=== PATIENT | male | born 2005 | race African-American/Black ===

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

== ENCOUNTER 2024-08-28 07:06 | Emergency (ER) | payer OTHER ==
[~2024-08-28] VITALS: Ht 177.8 cm; Wt 69.9 kg
[~2024-08-28 07:06] MED LIST changes: +CLIN1CAP70 PO; -CLIN300C70 PO; +EMOL1CRE EX; +HYD25TP TOP
[2024-08-28 08:37] LABS: Basophils # (auto) 0 10 ^3/uL (0-0.2); Basophils % (auto) 0.9 % (0.0-2.0); Eosinophils # (auto) 0.1 10 ^3/uL (0-0.8); Hematocrit 48.1 % (41.0-53.0); Hemoglobin 16.1 g/dL (13.5-17.5); Lymphocytes # (auto) 1.3 10 ^3/uL (0.4-5.4); Lymphocytes % (auto) 40.6 % (10.0-50.0); Mean Corpuscular Hemoglobin 32.9 pg (28.0-32.0); Mean Corpuscular Hgb Conc. 33.5 g/dL (32.0-36.0); Mean Corpuscular Volume 98.1 fL (80.0-100.0); Monocytes # (auto) 0.3 10 ^3/uL (0-1.3); Monocytes % (auto) 9.6 % (0.0-12.0); Neutrophils # (auto) 1.4 10 ^3/uL (1.6-8.6); Neutrophils % (auto) 45.9 % (37.0-80.0); Nucleated Red Blood Cells % 0.3 %; Platelet Count (auto) 187 10^3/uL (140-450); Red Blood Cells 4.91 10^6/uL (4.5-5.90); Red Cell Distribution Width 15.3 % (11.8-14.3); White Blood Cell 3.1 10^3/uL (4.4-10.8)
[2024-08-28 08:56] LABS: Alanine Aminotransferase 14 U/L (7-40); Albumin 4.9 g/dL (3.2-4.8); Alkaline Phosphatase 82 U/L (46-116); Anion Gap 3 (5-15); Aspartate Aminotransferase 24 U/L (13-40); BUN/Creatinine Ratio 5.8 (10.0-20.0); Blood Urea Nitrogen 6 mg/dL (9-23); Calcium 10.1 mg/dL (8.7-10.4); Carbon Dioxide 30 mmol/L (20-31); Chloride 108 mmol/L (98-107); Glucose 74 mg/dL (74-106); Lipase 33 U/L (12-53); Sodium 141 mmol/L (136-145)
--- NOTE | 2024-08-28 08:56 | ED.PDOC ---
GI ASSESSMENT HPI Comments 18 year old male presents to the ED with chief complaint of abdominal pain. Patient reports that he has been experiencing suprapubic/RLQ abdominal pain for the past 2 days with associated symptoms of watery diarrhea, sweats, and a headache. Patient relays that his pain is currently an 8/10. Patient admits to heavy daily ETOH use as well as frequent recreational use of Xanax and Percocet. Patient denies any sick contacts, N/V, dizziness, fever, chills, or melena. Chief Complaint: Abdominal Pain Time Seen by MD: 08:20 Primary Care Provider: NONE Reviewed Notes: Nurses Notes, Medications, Allergies Allergies: Coded Allergies: NO KNOWN ALLERGIES (Unverified , 08/10/22) Home Meds Active Scripts Ondansetron Odt 4MG Tab (ZOFRAN PO) 4 Mg Tb, 4 MG PO Q6HR for 5 Days, #12 TAB ODT TAB-DISSOLVE IN MOUTH, THEN SWALLOW Prov:GRAYSON IQBAL MD 08/28/24 Hyoscyamine Sulfate (Levsin/Sl) 0.125 Mg Sub, 1-2 TAB SL Q4HPRN, #20 TAB 1 Refill Prov:GRAYSON IQBAL MD 08/28/24 Emollient (Eucerin Advanced Repair) 1 Cre Cre, 1 CRE EX BID for 90 Days, #1 BOT 0 Refills Prov:BYRON LOW NP 09/04/23 Hydrocortone (Hydrocortisone 2.5%) 1 Applic Ap, 1 APPLIC TOP BID for 5 Days, #25 GRAMS 0 Refills Prov:BYRON LOW NP 09/04/23 Benzocaine-Menthol (Mouth-Thro (Cepacol Sore Throat) 1 Elizabeth Elizabeth, 1 ELIZABETH MT Q4HR, #24 ELIZABETH as needed for sorethroat Prov:JANNIE HINOJOSA NP 08/26/23 Prednisone (Prednisone) 20 Mg Tab, 1 TAB PO DAILY for 5 Days, #5 TAB start tomorrow with food Prov:JANNIE HINOJOSA DEGREE CLERK 08/26/23 Clindamycin Hcl (Clindamycin Hcl) 300 Mg Cap, 1 CAP PO TID for 10 Days, #30 CAP Prov:JANNIE HINOJOSA DEGREE CLERK 08/26/23 Albuterol Sulfate (VENTOLIN MDI) 90 Mcg Ih, 1 PUFF IN Q4H, #1 INH as needed for cough congestion SOb and wheezing Prov:JANNIE HINOJOSA DEGREE CLERK 06/26/23 Prednisone (Prednisone) 20 Mg Tab, 1 TAB PO DAILY, #5 MG with food Prov:JANNIE HINOJOSA DEGREE CLERK 06/26/23 Azithromycin (Zithromax Z-[place]) 250 Mg Tab, 1 TAB PO DAILY for 5 Days, #6 TAB 2 tabs today then 1 tab start tomorrow for 4 days Prov:JANNIE HINOJOSA Marleny DEGREE CLERK 06/26/23 Amoxicillin Trihydrate (Amoxicillin) 500 Mg Tab, 500 MG PO 3 TIMES DAILY for 7 Days, #21 TAB Prov:HEATHER JENKINS MD 08/10/22 Sumatriptan Succinate (Sumatriptan Succinate) 100 Mg Tab, 25 MG PO 3 TIMES DAILY for 7 Days, #21 TAB Prov:HEATHER JENKINS MD 08/10/22 Information Source: Patient Mode of Arrival: Ambulatory Timing: Days Duration: Since onset Prehospital treatment: None Quality: Sharp Vomitus: None Stool: Watery Severity: Moderate Recent: Ingestion of ETOH Recent Hx of: Narcotic Use Pain Location: RLQ, Suprapubic Modifying Factors: Nothing Associated sign and symptoms: Diarrhea, Abdominal Pain Past Medical History PAST MEDICAL HISTORY: Denies Surgical History: Denies all surgeries Family History Family History: Reviewed,noncontributory to illness Social History Smoker: Non-Smoker Alcohol: Heavy Drugs: Marijuana, Other (Recreational use of Xanax and Percocet) Lives In: Home Constitutional: reports: sweats; denies: chills, diaphoresis, fatigue, fever, malaise, weakness, others EENTM: denies: blurred vision, double vision, ear bleeding, ear discharge, ear drainage, ear pain, ear ringing, eye pain, eye redness, hearing loss, mouth pain, mouth swelling, nasal discharge, nose bleeding, nose congestion, nose pain, photophobia, tearing, throat pain, throat swelling, voice changes, others Respiratory: denies: cough, hemoptysis, orthopnea, SOB at rest, shortness of breath, SOB with excertion, stridor, wheezing, others Cardiovascular: denies: chest pain, dizzy spells, diaphoresis, Dyspnea on exertion, edema, irregular heart beat, left arm pain, lightheadedness, palpitations, PND, syncope, others Gastrointestinal: reports: abdominal pain, diarrhea; denies: abdomen distended, blood streaked bowels, constipated, dysphagia, difficulty swallowing, hematemesis, melena, nausea, poor appetite, poor fluid intake, rectal bleeding, rectal pain, vomiting, others Genitourinary: denies: burning, dysuria, flank pain, frequency, hematuria, incontinence, penile discharge, penile sore, pain, testicle pain, testicle swelling, urgency, others Neurological: reports: headache; denies: dizziness, fainting, left sided numbness, left sided weakness, numbness, paresthesia, pre-existing deficit, right sided numbness, right sided weakness, seizure, speech problems, tingling, tremors, weakness, others Musculoskeletal: denies: back pain, gout, joint pain, joint swelling, muscle pain, muscle stiffness, neck pain, others Integumetry: denies: bruises, change in color, change in hair/nails, dryness, laceration, lesions, lumps, rash, wounds, others Allergic/Immunocompromised: denies: Difficulty Healing, Frequent Infections, Hives, Itching, others Hematologic/Lymphatic: denies: anemia, blood clots, easy bleeding, easy bruising, swollen glands, others Endocrine: denies: excessive hunger, excessive sweating, excessive thirst, excessive urination, flushing, intolerance to cold, intolerance to heat, unexplained weight gain, unexplained weight loss, others Psychiatric: denies: anxiety, bipolar disorder, depression, hopeless, panic disorder, schizophrenia, sleepless, suicidal, others All Other Systems: Reviewed and Negative Physical Exam General Appearance: No Apparent Distress, Normal HEENT: Normal ENT Inspection, PERRL/EOMI Neck: Full Range of Motion, Non-Tender, Normal, Normal Inspection Respiratory: Chest Non-Tender, Lungs Clear, No Accessory Muscle Use, No Respiratory Distress, Normal Breath Sounds Cardiovascular: No Edema, No JVD, No Murmur, No Gallop, Normal Peripheral Pulses, Regular Rate/Rhythm Breast Exam: Deferred Gastrointestinal: No Organomegaly, No Pulsatile Mass, Normal Bowel Sounds, Soft, Tenderness (Suprapubic and RLQ tenderness) Genitalia: Deferred Pelvic: Deferred Rectal: Deferred Extremities: No calf tenderness, Normal capillary refill, Normal inspection, Normal range of motion, Non-tender, No pedal edema Musculoskeletal : Apperance: Normal Neurologic: Alert, skirt panel assembler II-XII nml as Tested, No Motor Deficits, Normal Affect, Normal Mood, No Sensory Deficits Cerebellar Function: Normal Reflexes: Normal Skin: Dry, Normal Color, Warm Lymphatic: No Adenopathy Was a procedure done? Was a procedure done?: No GI differential Dx Differential Diagnosis: Appendicitis Other Differential Diagnosis Appendicitis, cholecystitis, small-bowel obstruction, nephrolithiasis, UTI X-Ray, Labs, Meds, VS Vital Signs Date Time Temp Pulse Resp B/P (MAP) Pulse Ox O2 Delivery O2 Flow Rate FiO2 08/28/24 10:20 98.3 62 16 117/60 (79) 98 98.3 08/28/24 09:46 60 16 115/63 08/28/24 09:07 61 16 106/65 08/28/24 08:26 61 16 99 Room Air 08/28/24 08:26 97.5 61 16 106/65 (79) 99 97.5 08/28/24 07:53 98.7 71 20 111/70 (84) 99 Lab Test 08/28/24 08:25 08/28/24 08:03 Range/Units Urine Color Light-yellow Yellow Urine Clarity Clear Clear Urine pH 8.0 5.0-9.0 Urine Specific [place] 1.020 1.001-1.035 Urine Protein Trace H Negative Urine Ketones Negative Negative Urine Blood Negative Negative /uL Urine Nitrite Negative Negative Urine Bilirubin Negative Negative Urine Urobilinogen 2 H Negative mg/dL Urine Leukocyte Esterase Negative Negative /uL Urine RBC 3 0 - 3 /hpf Urine WBC None seen 0 - 3 /hpf Urine Squamous Epithelial Cells None seen <5 /hpf Urine Bacteria None seen None Seen /hpf Urine Glucose Normal Normal mg/dL White Blood Count 3.1 L 4.4-10.8 10^3/uL Red Blood Count 4.91 4.5-5.90 10^6/uL Hemoglobin 16.1 13.5-17.5 g/dL Hematocrit 48.1 41.0-53.0 % Mean Corpuscular Volume 98.1 80.0-100.0 fL Mean Corpuscular Hemoglobin 32.9 H 28.0-32.0 pg Mean Corpuscular Hemoglobin Concent 33.5 32.0-36.0 g/dL Red Cell Distribution Width 15.3 H 11.8-14.3 % Platelet Count 187 140-450 10^3/uL Mean Platelet Volume 8.7 6.9-10.8 fL Neutrophils (%) (Auto) 45.9 37.0-80.0 % Lymphocytes (%) (Auto) 40.6 10.0-50.0 % Monocytes (%) (Auto) 9.6 0.0-12.0 % Eosinophils (%) (Auto) 3.0 0.0-7.0 % Basophils (%) (Auto) 0.9 0.0-2.0 % Neutrophils # (Auto) 1.4 L 1.6-8.6 10 ^3/uL Lymphocytes # (Auto) 1.3 0.4-5.4 10 ^3/uL Monocytes # (Auto) 0.3 0-1.3 10 ^3/uL Eosinophils # (Auto) 0.1 0-0.8 10 ^3/uL Basophils # (Auto) 0 0-0.2 10 ^3/uL Nucleated Red Blood Cells 0.3 % Sodium Level 141 136-145 mmol/L Potassium Level 4.0 3.5-5.1 mmol/L Chloride Level 108 H 98-107 mmol/L Carbon Dioxide Level 30 20-31 mmol/L Anion Gap 3 L 5-15 Blood Urea Nitrogen 6 L 9-23 mg/dL Creatinine 1.04 0.700-1.30 mg/dL Glomerular Filtration Rate Calc 106 >90 mL/min BUN/Creatinine Ratio 5.8 L 10.0-20.0 Serum Glucose 74 74-106 mg/dL Calcium Level 10.1 8.7-10.4 mg/dL Total Bilirubin 0.6 0.2-1.0 mg/dL Aspartate Amino Transferase (AST) 24 13-40 U/L Alanine Aminotransferase (ALT) 14 7-40 U/L Alkaline Phosphatase 82 46-116 U/L Total Protein 7.8 5.7-8.2 g/dL Albumin 4.9 H 3.2-4.8 g/dL Lipase 33 12-53 U/L Current Medications Medications (Trade) Dose Ordered Sig/Giovanny Route Start Time Stop Time Status Last Admin Ondansetron HCl (Zofran) 4 mg ONCE ONCE IV 08/28/24 09:00 08/28/24 09:01 DC 08/28/24 09:07 Morphine Sulfate 4 mg ONCE ONCE IV 08/28/24 09:00 08/28/24 09:01 DC 08/28/24 09:07 CT Abd/Pel: FINDINGS: The CT study is degraded by motion artifact. Theliver, gallbladder, pancreas, kidneys, adrenal glands, and spleen appear within normal limits. There is no gross evidence of abdominal lymphadenopathy. There is no free fluid or free air. The stomach grossly appears unremarkable. The small and large bowel loops demonstrate normal caliber. The appendix is not readily seen in the right lower quadrant abdomen. However, there are no inflammatory changes seen in this region. Air intermixed with stool is seen throughout the colon. The abdominal aorta and IVC appear within normal limits. The bladder appears within normal limits the degree of distention. Pelvic organs is unremarkable. There is no gross evidence of a pelvic mass or lymphadenopathy. There is no free fluid collection. Lung bases are clear. There is no acute osseous abnormality. IMPRESSION: 1. Limited study secondary to motion artifact. 2. The appendix is not readily seen in the right lower quadrant abdomen. However, there are no inflammatory changes seen in this region. There is no evidence of bowel obstruction. 18-year-old male presents here with abdominal pain. On my evaluation patient is tender to the right lower quadrant. Considered possible appendicitis. CT abdomen pelvis with IV contrast was performed which did not readily see the appendix. However there were no inflammatory changes in the region. No other abnormalities visualized. Blood work has been done which no leukocytosis and otherwise unremarkable. I have given him morphine and Zofran here in the ER. Clinically he is feeling better. On my re-evaluation of the patient at 11:00 a.m., abdomen is soft and nontender. Patient has been having diarrhea it is likely this pain is from diarrhea or cramps. I have given a prescription for both Zofran and hyoscyamine sent to the pharmacy of choice. Advised him to return back to the ER in 12 hours for re-evaluation of this abdominal pain. Patient agreeable. Time of 1ST Reevaluation: 09:20 Reevaluation 1ST: Unchanged Time of 2ND Reevaluation: 10:47 Reevaluation 2ND: Improved Patient Education/Counseling: Diagnosis, Treatment Family Education/Counseling: No Family Present Departure 1 Departure Time of Disposition: 10:47 Impression: Primary Impression: Abdominal pain Qualified Codes: R10.31 - Right lower quadrant pain Additional Impression: Diarrhea Qualified Codes: R19.7 - Diarrhea, unspecified Disposition: 01 HOME / SELF CARE / HOMELESS Condition: Stable Additional Instructions: Return back to the ER in 12 hours for re-evaluation. Return sooner if symptoms worsen or persist. e-Prescriptions Ondansetron Odt 4MG Tab (ZOFRAN PO) 4 Mg Tb 4 MG PO Q6HR for 5 Days, #12 TAB ODT TAB-DISSOLVE IN MOUTH, THEN SWALLOW Prov: GRAYSON IQBAL MD 08/28/24 Hyoscyamine Sulfate (Levsin/Sl) 0.125 Mg Sub 1-2 TAB SL Q4HPRN, #20 TAB 1 Refill Prov: GRAYSON IQBAL MD 08/28/24 Discharged With: Self Critical Care Note Critical Care Time?: No Stability Stability form required: No Heart Score Heart Score: Heart Score Response (Comments) Value History N/A 0 EKG N/A 0 Age N/A 0 Risk Factors N/A 0 Troponin N/A 0 Total 0 I personally scribed for GRAYSON IQBAL MD ([email or web address]) on 08/28/24 at 08:56. Electronically submitted by Josh Braga ([email or web address]). I personally scribed for GRAYSON IQBAL MD ([email or web address]) on 08/28/24 at 10:48. Electronically submitted by Josh Braga ([email or web address]). GRAYSON IQBAL MD Aug 28, 2024 08:56
[2024-08-28 08:57] LABS: Bilirubin, Total 0.6 mg/dL (0.2-1.0); Total Protein 7.8 g/dL (5.7-8.2)
[2024-08-28 09:03] LABS: Urine Bacteria None Seen /hpf (None Seen); Urine WBC None Seen /hpf (0 - 3)
[2024-08-28] MEDS: ONDANSETRON HCL 4 MG/2 ML VIAL IV ONE (09:07)
[2024-08-28] MEDS: MORPHINE SULFATE 4 MG/ML SYR/VIAL IV ONE (09:07)
[2024-08-28 09:20] LABS: Urine Blood Negative /uL (Negative); Urine Clarity Clear (Clear); Urine Color Light-Yellow (Yellow); Urine Protein, UAD TRACE (Negative); Urine Urobilinogen 2 mg/dL (Negative)
[2024-08-28] MEDS: IOHEXOL 300 MG/ML 100ML BOTTLE IJ ONE (09:31)
--- NOTE | 2024-08-28 09:40 | DVH ---
Exam: CT CT AB PEL WITH IV CON ONLY History: ro appy Comparison Study: TECHNIQUE: A digital mobile equipment servicer image was obtained. During the uneventful, intravenous administration of c ontrast material, multislice data acquisition was obtained through the abdomen and pelvis. The data s et was subsequently reconstructed into axial images. Images were reviewed on a work station using a c ombination of axial and multiplanar using a variety of window levels and settings. 100 cc of Omnipaqu e 300 contrast was injected intravenously. All CT scans at this medical facility are performed using dose modulation techniques as appropriate t o a performed exam including the following:Automated exposure control was utilized; adjustment of the MA and/or KV according to patient size; and use of iterative reconstruction technique. Radiation Dose Information: CT Dose: CTDI volume is 7.3 mGy. Dose-length product is 386 mGy*cm Comparison: None FINDINGS: The CT study is degraded by motion artifact. Theliver, gallbladder, pancreas, kidneys, adrenal glands, and spleen appear within normal limits. There is no gross evidence of abdominal lymphadenopathy. There is no free fluid or free air. The stomach grossly appears unremarkable. The small and large bowel loops demonstrate normal caliber. The appendix is not readily seen in the right lower quadrant abdomen. However, there are no inflamm atory changes seen in this region. Air intermixed with stool is seen throughout the colon. The abdominal aorta and IVC appear within normal limits. The bladder appears within normal limits the degree of distention. Pelvic organs is unremarkable. The re is no gross evidence of a pelvic mass or lymphadenopathy. There is no free fluid collection. Lung bases are clear. There is no acute osseous abnormality. IMPRESSION: 1. Limited study secondary to motion artifact. 2. The appendix is not readily seen in the right lower quadrant abdomen. However, there are no infla mmatory changes seen in this region. There is no evidence of bowel obstruction. HS:Y
[2024-08-28 10:20] VITALS: BP 117/60; PULSE 62; RESP 16; TEMP 98.3; O2SAT 98
[2024-08-28] MEDS ORDERED: ZOFR4T PO (11:22)
[2024-08-28] MEDS ORDERED: HYOS0.1251 SL (11:22)
== END 2024-08-28 11:02 | disposition home or self-care (01) ==
LOC: ER 07:06
DX: R10.31 Right lower quadrant pain (principal); R19.7 Diarrhea, unspecified; F10.90 Alcohol use, unspecified, uncomplicated; F15.90 Other stimulant use, unspecified, uncomplicated; Z79.899 Other long term (current) drug therapy; Y90.0 Blood alcohol level of less than 20 mg/100 ml
CPT/HCPCS: 36415; 74177; 80053; 81001; 83690; 85025; 96374; 96375; 99285; J2270; J2405; Q9967

== ENCOUNTER 2024-09-04 08:20 | Emergency (ER) | payer OTHER ==
[~2024-09-04] VITALS: Ht 177.8 cm; Wt 71.9 kg
[~2024-09-04 08:20] MED LIST changes: +HYOS0.1251 SL; +ZOFR4T PO
[2024-09-04 08:30] VITALS: BP 112/61; TEMP 98.4
--- NOTE | 2024-09-04 08:58 | ED.PDOC ---
GI ASSESSMENT HPI Comments A 18 YEAR OLD MALE PRESENTS TO THE ED WITH COMPLAINT OF RUQ ABDOMINAL PAIN WITH N/V/D. PATIENT STATES HAS BEEN EXPERIENCING RIGHT UPPER QUADRANT ABDOMINAL PAIN WITH OCCASIONAL NAUSEA, VOMITING, AND DIARRHEA OFF AND ON FOR THE PAST 1 WEEK. PATIENT REPORTS HE CAME TO THIS ED 1 WEEK AGO FOR THE SAME COMPLAINT WHERE A CT SCAN OF HIS ABDOMEN AND PELVIS WITH IV CONTRAST AND LABS WERE DONE ALL OF WHICH WERE NORMAL, BUT NOTES HE IS STILL EXPERIENCING PAIN. PATIENT NOTES THAT HE DRINKS ALCOHOL ON A DAILY BASIS. PATIENT DENIES FEVER, CHILLS, SHORTNESS OF BREATH, CHEST PAIN, HEADACHE, OR OTHER COMPLAINTS. NO OTHER SYMPTOMS OR MODIFYING FACTORS AT THIS TIME. PATIENT IS ALERT, ORIENTED X 4, AND HAS STEADY GAIT. Chief Complaint: Abdominal Pain Time Seen by MD: 08:26 Primary Care Provider: NONE Reviewed Notes: Nurses Notes, Medications, Allergies Allergies: Coded Allergies: NO KNOWN ALLERGIES (Unverified , 08/10/22) Home Meds Active Scripts Pantoprazole Sodium Sesquihydr (Protonix) 40 Mg Tab, 40 MG PO DAILY, #20 TAB Prov:DANISH NAVARRO 09/04/24 Ondansetron Odt 4MG Tab (ZOFRAN PO) 4 Mg Tb, 4 MG PO Q6HR for 5 Days, #12 TAB ODT TAB-DISSOLVE IN MOUTH, THEN SWALLOW Prov:GRAYSON IQBAL MD 08/28/24 Hyoscyamine Sulfate (Levsin/Sl) 0.125 Mg Sub, 1-2 TAB SL Q4HPRN, #20 TAB 1 Refill Prov:GRAYSON IQBAL MD 08/28/24 Emollient (Eucerin Advanced Repair) 1 Cre Cre, 1 CRE EX BID for 90 Days, #1 BOT 0 Refills Prov:BYRON LOW NP 09/04/23 Hydrocortone (Hydrocortisone 2.5%) 1 Applic Ap, 1 APPLIC TOP BID for 5 Days, #25 GRAMS 0 Refills Prov:BYRON LOW NP 09/04/23 Benzocaine-Menthol (Mouth-Thro (Cepacol Sore Throat) 1 Elizabeth Elizabeth, 1 ELIZABETH MT Q4HR, #24 ELIZABETH as needed for sorethroat Prov:JANNIE HINOJOSA LOAN SECRETARY 08/26/23 Prednisone (Prednisone) 20 Mg Tab, 1 TAB PO DAILY for 5 Days, #5 TAB start tomorrow with food Prov:JANNIE HINOJOSA LOAN SECRETARY 08/26/23 Clindamycin Hcl (Clindamycin Hcl) 300 Mg Cap, 1 CAP PO TID for 10 Days, #30 CAP Prov:JANNIE HINOJOSA LOAN SECRETARY 08/26/23 Albuterol Sulfate (VENTOLIN MDI) 90 Mcg Ih, 1 PUFF IN Q4H, #1 INH as needed for cough congestion SOb and wheezing Prov:JANNIE HINOJOSA LOAN SECRETARY 06/26/23 Prednisone (Prednisone) 20 Mg Tab, 1 TAB PO DAILY, #5 MG with food Prov:JANNIE HINOJOSA LOAN SECRETARY 06/26/23 Azithromycin (Zithromax Z-[place]) 250 Mg Tab, 1 TAB PO DAILY for 5 Days, #6 TAB 2 tabs today then 1 tab start tomorrow for 4 days Prov:JANNIE HINOJOSA LOAN SECRETARY 06/26/23 Amoxicillin Trihydrate (Amoxicillin) 500 Mg Tab, 500 MG PO 3 TIMES DAILY for 7 Days, #21 TAB Prov:HEATHER JENKINS MD 08/10/22 Sumatriptan Succinate (Sumatriptan Succinate) 100 Mg Tab, 25 MG PO 3 TIMES DAILY for 7 Days, #21 TAB Prov:HEATHER JENKINS MD 08/10/22 Information Source: Patient Mode of Arrival: Ambulatory Timing: Days Duration: Intermittent, Days Prehospital treatment: None Quality: Aching, Cramping Vomitus: Food Particles Stool: Loose, Watery Severity: Moderate Recent: None Recent Hx of: None Pain Location: RUQ Modifying Factors: Nothing Associated sign and symptoms: Nausea, Vomiting, Diarrhea, Abdominal Pain Past Medical History PAST MEDICAL HISTORY: Denies Surgical History: Denies all surgeries Family History Family History: Reviewed,noncontributory to illness Social History Smoker: Non-Smoker Alcohol: Heavy Drugs: Marijuana, Other Lives In: Home Constitutional: denies: chills, diaphoresis, fatigue, fever, malaise, sweats, weakness, others EENTM: denies: blurred vision, double vision, ear bleeding, ear discharge, ear drainage, ear pain, ear ringing, eye pain, eye redness, hearing loss, mouth pain, mouth swelling, nasal discharge, nose bleeding, nose congestion, nose pain, photophobia, tearing, throat pain, throat swelling, voice changes, others Respiratory: denies: cough, hemoptysis, orthopnea, SOB at rest, shortness of b reath, SOB with excertion, stridor, wheezing, others Cardiovascular: denies: chest pain, dizzy spells, diaphoresis, Dyspnea on exertion, edema, irregular heart beat, left arm pain, lightheadedness, palpitations, PND, syncope, others Gastrointestinal: reports: abdominal pain (RIGHT UPPER QUADRANT ABDOMINAL PAIN), nausea, vomiting; denies: abdomen distended, blood streaked bowels, constipated, diarrhea, dysphagia, difficulty swallowing, hematemesis, melena, poor appetite, poor fluid intake, rectal bleeding, rectal pain, others Genitourinary: denies: burning, dysuria, flank pain, frequency, hematuria, incontinence, penile discharge, penile sore, pain, testicle pain, testicle swelling, urgency, others Neurological: denies: dizziness, fainting, headache, left sided numbness, left sided weakness, numbness, paresthesia, pre-existing deficit, right sided numbness, right sided weakness, seizure, speech problems, tingling, tremors, weakness, others Musculoskeletal: denies: back pain, gout, joint pain, joint swelling, muscle pain, muscle stiffness, neck pain, others Integumetry: denies: bruises, change in color, change in hair/nails, dryness, laceration, lesions, lumps, rash, wounds, others Allergic/Immunocompromised: denies: Difficulty Healing, Frequent Infections, Hives, Itching, others Hematologic/Lymphatic: denies: anemia, blood clots, easy bleeding, easy bruising, swollen glands, others Endocrine: denies: excessive hunger, excessive sweating, excessive thirst, excessive urination, flushing, intolerance to cold, intolerance to heat, unexplained weight gain, unexplained weight loss, others Psychiatric: denies: anxiety, bipolar disorder, depression, hopeless, panic disorder, schizophrenia, sleepless, suicidal, others All Other Systems: Reviewed and Negative Physical Exam General Appearance: No Apparent Distress, Normal HEENT: Normal ENT Inspection, PERRL/EOMI, Pharynx Normal, TMs Normal Neck: Full Range of Motion, Non-Tender, Normal, Normal Inspection Respiratory: Chest Non-Tender, Lungs Clear, No Accessory Muscle Use, No Respiratory Distress, Normal Breath Sounds Cardiovascular: No Edema, No JVD, No Murmur, No Gallop, Normal Peripheral Pulses, Regular Rate/Rhythm Breast Exam: Deferred Gastrointestinal: No Organomegaly, No Pulsatile Mass, Normal Bowel Sounds, RUQ, Soft, Tenderness (RIGHT UPPER ABD, NO GUARDING AND REBOUND TENDERNESS. ) Genitalia: Deferred Pelvic: Deferred Rectal: Deferred Extremities: No calf tenderness, Normal capillary refill, Normal inspection, Normal range of motion, Non-tender, No pedal edema Musculoskeletal : Apperance: Normal Neurologic: Alert, test engineering intern II-XII nml as Tested, No Motor Deficits, Normal Affect, Normal Mood, No Sensory Deficits Cerebellar Function: Normal Reflexes: Normal Skin: Dry, Normal Color, Warm Peripheral Pulses: 2+ carotid (R), 2+ carotid (L) Lymphatic: No Adenopathy Was a procedure done? Was a procedure done?: No GI differential Dx Differential Diagnosis: Cholecystitis, Diverticular disease, Gastritis/PUD, Gastroenteritis, Pancreatitis, Dehydration, Food Poisoning, Viral X-Ray, Labs, Meds, VS Vital Signs Date Time Temp Pulse Resp B/P (MAP) Pulse Ox O2 Delivery O2 Flow Rate FiO2 09/04/24 09:06 78 18 100 Room Air 09/04/24 08:30 98.4 78 18 112/61 (78) 100 98.4 09/04/24 08:30 98.4 78 18 112/61 (78) 100 Lab Test 09/04/24 09:22 09/04/24 08:55 Range/Units White Blood Count 3.3 L 4.4-10.8 10^3/uL Red Blood Count 4.52 4.5-5.90 10^6/uL Hemoglobin 15.3 13.5-17.5 g/dL Hematocrit 44.4 41.0-53.0 % Mean Corpuscular Volume 98.2 80.0-100.0 fL Mean Corpuscular Hemoglobin 33.8 H 28.0-32.0 pg Mean Corpuscular Hemoglobin Concent 34.4 32.0-36.0 g/dL Red Cell Distribution Width 14.8 H 11.8-14.3 % Platelet Count 193 140-450 10^3/uL Mean Platelet Volume 8.5 6.9-10.8 fL Neutrophils (%) (Auto) 36.8 L 37.0-80.0 % Lymphocytes (%) (Auto) 47.5 10.0-50.0 % Monocytes (%) (Auto) 10.1 0.0-12.0 % Eosinophils (%) (Auto) 4.5 0.0-7.0 % Basophils (%) (Auto) 1.1 0.0-2.0 % Neutrophils # (Auto) 1.2 L 1.6-8.6 10 ^3/uL Lymphocytes # (Auto) 1.6 0.4-5.4 10 ^3/uL Monocytes # (Auto) 0.3 0-1.3 10 ^3/uL Eosinophils # (Auto) 0.1 0-0.8 10 ^3/uL Basophils # (Auto) 0 0-0.2 10 ^3/uL Nucleated Red Blood Cells 0.1 % Sodium Level 143 136-145 mmol/L Potassium Level 4.0 3.5-5.1 mmol/L Chloride Level 106 98-107 mmol/L Carbon Dioxide Level 30 20-31 mmol/L Anion Gap 7 5-15 Blood Urea Nitrogen 12 9-23 mg/dL Creatinine 1.03 0.700-1.30 mg/dL Glomerular Filtration Rate Calc 107 >90 mL/min BUN/Creatinine Ratio 11.7 10.0-20.0 Serum Glucose 67 L 74-106 mg/dL Calcium Level 9.8 8.7-10.4 mg/dL Total Bilirubin 0.7 0.2-1.0 mg/dL Aspartate Amino Transferase (AST) 21 13-40 U/L Alanine Aminotransferase (ALT) 15 7-40 U/L Alkaline Phosphatase 58 46-116 U/L Total Protein 7.3 5.7-8.2 g/dL Albumin 4.3 3.2-4.8 g/dL Urine Color Light-yellow Yellow Urine Clarity Clear Clear Urine pH 6.0 5.0-9.0 Urine Specific [place] 1.019 1.001-1.035 Urine Protein Negative Negative Urine Ketones Negative Negative Urine Blood Negative Negative /uL Urine Nitrite Negative Negative Urine Bilirubin Negative Negative Urine Urobilinogen Normal Negative mg/dL Urine Leukocyte Esterase Negative Negative /uL Urine RBC 4 0 - 3 /hpf Urine WBC <1 0 - 3 /hpf Urine Squamous Epithelial Cells Few <5 /hpf Urine Bacteria None seen None Seen /hpf Urine Glucose Normal Normal mg/dL Urine Opiates Screen Neg NEGATIVE Urine Fentanyl Screen Neg NEGATIVE Urine Barbiturates Screen Neg NEGATIVE Urine Phencyclidine Screen Neg NEGATIVE Urine Amphetamines Screen Neg NEGATIVE Urine Benzodiazepines Screen Neg NEGATIVE Urine Cocaine Screen Neg NEGATIVE Urine Cannabinoids Screen Neg NEGATIVE Current Medications Medications (Trade) Dose Ordered Sig/Giovanny Route Start Time Stop Time Status Last Admin Acetaminophen/ Hydrocodone Bitart ([place] 5/325MG Tab) 1 tab ONCE ONCE PO 09/04/24 10:30 09/04/24 10:31 09/04/24 10:26 ULTRASOUND ABDOMEN LIMITED INDICATION: Abdominal pain.. TECHNIQUE: Multiple real-time sonographic images of the abdomen were obtained. COMPARISON: None FINDINGS: The visualized liver parenchyma appears mildly echogenic compatible with steatosis. . The liver measures 14.3 cm. No discrete hepatic lesion or intrahepatic biliary ductal dilatation is identified. There is no evidence of gallstones, gallbladder wall thickening or pericholecystic fluid. The common biliary duct is not dilated. The right kidney measures 8.8 cm length. No sonographic evidence of nephrolithiasis or hydronephrosis. Pancreas is obscured by bowel gas. IMPRESSION: 1. Mildly echogenic appearing liver parenchyma May relate to mild fatty infiltration. Clinical and laboratory correlation is recommended. HS:Y ATED BY: DERRICK CARTER MD DICTATED DATE/TIME: 09/04/24940 SIGNED BY: DERRICK CARTER MD SIGNED DATE/TIME: 09/04/24940 CC: X-Ray, Labs, Meds, VS Comment LABS ORDERED: CBC, CMP, UA, UDS REVIEWED AND INTERPRETED RESULTS: GLUC 67 TREATMENT: NORCO 5/325 MG P.O., PATIENT DECLINED IV TREATMENT, AND STATED HE DOES NOT LIKE NEEDLES. PATIENT WAS ONLY REQUESTING NORCO FOR PAIN MEDICINE. Images Reviewed?: Images reviewed and evaluated by me Time of 1ST Reevaluation: 10:30 Reevaluation 1ST: Improved Patient Education/Counseling: Diagnosis, Treatment, Need For Follow Up Family Education/Counseling: Diagnosis, Treatment, Need For Follow Up Medical Screening: No EMC Exist At This Time Departure 1 Departure Time of Disposition: 10:30 Impression: Primary Impression: Acute gastroenteritis Additional Impressions: Alcoholic gastritis Qualified Codes: K29.20 - Alcoholic gastritis without bleeding Hepatic steatosis Disposition: HOME / SELF CARE / HOMELESS Condition: Stable Additional Instructions: FOLLOW-UP WITH PCP IN 1 TO 2 DAYS. TAKE MEDICATIONS PRESCRIBED. RETURN TO ED FOR ANY NEW OR WORSENING SYMPTOMS. e-Prescriptions Pantoprazole Sodium Sesquihydr (Protonix) 40 Mg Tab 40 MG PO DAILY, #20 TAB Prov: DANISH NAVARRO 09/04/24 Discharged With: Self Critical Care Note Critical Care Time?: No Stability Stability form required: No I personally scribed for DANISH NAVARRO ([email or web address]) on 09/04/24 at 08:58. Electronically submitted by Calos Alberto ([email or web address]). I personally scribed for DANISH NAVARRO ([email or web address]) on 09/04/24 at 10:14. Electronically submitted by Calos Alberto ([email or web address]). I personally scribed for DANISH NAVARRO ([email or web address]) on 09/04/24 at 10:21. Electronically submitted by Calos Alberto ([email or web address]). DANISH NAVARRO Sep 04, 2024 08:58
[2024-09-04 09:06] VITALS: PULSE 78; RESP 18; O2SAT 100
[2024-09-04 09:21] LABS: Urine Bacteria None Seen /hpf (None Seen)
[2024-09-04 09:42] LABS: Urine Blood Negative /uL (Negative); Urine Clarity Clear (Clear); Urine Color Light-Yellow (Yellow); Urine Protein, UAD Negative (Negative); Urine Specific Gravity 1.019 (1.001-1.035); Urine Urobilinogen Normal (Negative); Urine WBC <1 /hpf (0 - 3)
--- NOTE | 2024-09-04 09:42 | DVH ---
ULTRASOUND ABDOMEN LIMITED INDICATION: Abdominal pain.. TECHNIQUE: Multiple real-time sonographic images of the abdomen were obtained. COMPARISON: None FINDINGS: The visualized liver parenchyma appears mildly echogenic compatible with steatosis. . The liver me asures 14.3 cm. No discrete hepatic lesion or intrahepatic biliary ductal dilatation is identifi ed. There is no evidence of gallstones, gallbladder wall thickening or pericholecystic fluid. The common biliary duct is not dilated. The right kidney measures 8.8 cm length. No sonographic evidence of nephrolithiasis or hydronephros is. Pancreas is obscured by bowel gas. IMPRESSION: 1. Mildly echogenic appearing liver parenchyma May relate to mild fatty infiltration. Clinical and la boratory correlation is recommended. HS:Y
[2024-09-04 09:43] LABS: Basophils # (auto) 0 10 ^3/uL (0-0.2); Basophils % (auto) 1.1 % (0.0-2.0); Eosinophils # (auto) 0.1 10 ^3/uL (0-0.8); Eosinophils % (auto) 4.5 % (0.0-7.0); Hematocrit 44.4 % (41.0-53.0); Hemoglobin 15.3 g/dL (13.5-17.5); Lymphocytes # (auto) 1.6 10 ^3/uL (0.4-5.4); Lymphocytes % (auto) 47.5 % (10.0-50.0); Mean Corpuscular Hemoglobin 33.8 pg (28.0-32.0); Mean Corpuscular Hgb Conc. 34.4 g/dL (32.0-36.0); Mean Corpuscular Volume 98.2 fL (80.0-100.0); Monocytes # (auto) 0.3 10 ^3/uL (0-1.3); Monocytes % (auto) 10.1 % (0.0-12.0); Neutrophils # (auto) 1.2 10 ^3/uL (1.6-8.6); Neutrophils % (auto) 36.8 % (37.0-80.0); Nucleated Red Blood Cells % 0.1 %; Platelet Count (auto) 193 10^3/uL (140-450); Red Blood Cells 4.52 10^6/uL (4.5-5.90); Red Cell Distribution Width 14.8 % (11.8-14.3); White Blood Cell 3.3 10^3/uL (4.4-10.8)
[2024-09-04 09:53] LABS: Amphetamine Screen, Urine Neg (NEGATIVE)
[2024-09-04 09:54] LABS: Barbiturate Scree,Urine Neg (NEGATIVE); Benzodiazephine Screen, Urine Neg (NEGATIVE); Cannabinoid Screen, Urine Neg (NEGATIVE); Cocaine Screen, Urine Neg (NEGATIVE); Opiate Scree,Urine Neg (NEGATIVE); Phencyclidine Screen, Urine Neg (NEGATIVE)
[2024-09-04 10:06] LABS: Alanine Aminotransferase 15 U/L (7-40); Albumin 4.3 g/dL (3.2-4.8); Alkaline Phosphatase 58 U/L (46-116); Anion Gap 7 (5-15); Aspartate Aminotransferase 21 U/L (13-40); BUN/Creatinine Ratio 11.7 (10.0-20.0); Bilirubin, Total 0.7 mg/dL (0.2-1.0); Blood Urea Nitrogen 12 mg/dL (9-23); Calcium 9.8 mg/dL (8.7-10.4); Carbon Dioxide 30 mmol/L (20-31); Chloride 106 mmol/L (98-107); Glucose 67 mg/dL (74-106); Sodium 143 mmol/L (136-145); Total Protein 7.3 g/dL (5.7-8.2)
[2024-09-04] MEDS: KETOROLAC TROMETH 60MG/2ML VIAL IM ONE (10:07)
[2024-09-04] MEDS ORDERED: PANT40TA2 PO (10:25)
[2024-09-04] MEDS: HYDROcodone-ACET 5/325MG TAB PO ONE (10:26)
== END 2024-09-04 10:30 | disposition home or self-care (01) ==
LOC: ER 08:20
DX: K52.9 Noninfective gastroenteritis and colitis, unspecified (principal); K29.20 Alcoholic gastritis without bleeding; F12.10 Cannabis abuse, uncomplicated; Z79.899 Other long term (current) drug therapy
CPT/HCPCS: 36415; 76705; 80053; 80307; 81001; 85025; J1885

== ENCOUNTER 2024-09-10 08:11 | Emergency (ER) | payer OTHER ==
[~2024-09-10] VITALS: Ht 177.8 cm; Wt 72.1 kg
[~2024-09-10 08:11] MED LIST changes: +PANT40TA2 PO
[2024-09-10 08:33] VITALS: BP 119/69; PULSE 79; RESP 19; TEMP 97.9; O2SAT 99
--- NOTE | 2024-09-10 08:40 | ED.PDOC ---
History of Present Illness HPI Comments A 19 YEAR OLD MALE PRESENTS TO THE ED WITH COMPLAINT OF RIB PAIN. PATIENT REPORTS THAT HE HAS BEEN EXPERIENCING LEFT SIDED RIB PAIN SINCE THIS MORNING AROUND 2 HOURS AGO. 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 PATIENT STATES HE HAS SINCE QUIT DRINKING AND [place] USE. PATIENT DENIES FALL, INJURY, SHORTNESS OF BREATH, CHEST PAIN, ABDOMINAL PAIN, NAUSEA, VOMITING, HEADACHE, OR OTHER COMPLAINTS. NO OTHER SYMPTOMS OR MODIFYING FACTORS AT THIS TIME. Chief Complaint: Rib Pain Time Seen by MD: 08:37 Primary Care Provider: NONE Reviewed Notes: Nurses Notes, Medications, Allergies Allergies: Coded Allergies: NO KNOWN ALLERGIES (Unverified , 08/10/22) Home Meds Active Scripts Baclofen (Baclofen) 10 Mg Tab, 10 MG PO BID, #20 TAB Prov:DANISH NAVARRO 09/10/24 Ibuprofen (Ibuprofen) 800 Mg Tab, 1 TAB PO TID, #24 TAB Prov:DANISH NAVARRO 09/10/24 Pantoprazole Sodium Sesquihydr (Protonix) 40 Mg Tab, 40 MG PO DAILY, #20 TAB Prov:DANISH NAVARRO 09/04/24 Ondansetron Odt 4MG Tab (ZOFRAN PO) 4 Mg Tb, 4 MG PO Q6HR for 5 Days, #12 TAB ODT TAB-DISSOLVE IN MOUTH, THEN SWALLOW Prov:GRAYSON IQBAL MD 08/28/24 Hyoscyamine Sulfate (Levsin/Sl) 0.125 Mg Sub, 1-2 TAB SL Q4HPRN, #20 TAB 1 Refill Prov:GRAYSON IQBAL MD 08/28/24 Emollient (Eucerin Advanced Repair) 1 Cre Cre, 1 CRE EX BID for 90 Days, #1 BOT 0 Refills Prov:BYRON LOW NP 09/04/23 Hydrocortone (Hydrocortisone 2.5%) 1 Applic Ap, 1 APPLIC TOP BID for 5 Days, #25 GRAMS 0 Refills Prov:BYRON LOW NP 09/04/23 Benzocaine-Menthol (Mouth-Thro (Cepacol Sore Throat) 1 Elizabeth Elizabeth, 1 ELIZABETH MT Q4HR, #24 ELIZABETH as needed for sorethroat Prov:JANNIE HINOJOSA ASSOCIATE PROFESSOR PLANT PATHOLOGY 08/26/23 Prednisone (Prednisone) 20 Mg Tab, 1 TAB PO DAILY for 5 Days, #5 TAB start tomorrow with food Prov:JANNIE HINOJOSA ASSOCIATE PROFESSOR PLANT PATHOLOGY 08/26/23 Clindamycin Hcl (Clindamycin Hcl) 300 Mg Cap, 1 CAP PO TID for 10 Days, #30 CAP Prov:JANNIE HINOJOSA ASSOCIATE PROFESSOR PLANT PATHOLOGY 08/26/23 Albuterol Sulfate (VENTOLIN MDI) 90 Mcg Ih, 1 PUFF IN Q4H, #1 INH as needed for cough congestion SOb and wheezing Prov:JANNIE HINOJOSA ASSOCIATE PROFESSOR PLANT PATHOLOGY 06/26/23 Prednisone (Prednisone) 20 Mg Tab, 1 TAB PO DAILY, #5 MG with food Prov:JANNIE HINOJOSA ASSOCIATE PROFESSOR PLANT PATHOLOGY 06/26/23 Azithromycin (Zithromax Z-[place]) 250 Mg Tab, 1 TAB PO DAILY for 5 Days, #6 TAB 2 tabs today then 1 tab start tomorrow for 4 days Prov:JANNIE HINOJOSA ASSOCIATE PROFESSOR PLANT PATHOLOGY 06/26/23 Amoxicillin Trihydrate (Amoxicillin) 500 Mg Tab, 500 MG PO 3 TIMES DAILY for 7 Days, #21 TAB Prov:HEATHER JENKINS MD 08/10/22 Sumatriptan Succinate (Sumatriptan Succinate) 100 Mg Tab, 25 MG PO 3 TIMES DAILY for 7 Days, #21 TAB Prov:HEATHER JENKINS MD 08/10/22 Information Source: Patient Mode of Arrival: Ambulatory Severity: Moderate Timing: Hours Duration: Since onset Prehospital treatment: None Medication Refill: For: Other (LEFT MIDDLE RIBS PAIN ) Past Medical History PAST MEDICAL HISTORY: Denies Surgical History: Denies all surgeries Family History Family History: Reviewed,noncontributory to illness Social History Smoker: Non-Smoker Alcohol: Heavy, Sober Drugs: Marijuana, Other Lives In: Home Constitutional: denies: chills, diaphoresis, fatigue, fever, malaise, sweats, weakness, others EENTM: denies: blurred vision, double vision, ear bleeding, ear discharge, ear drainage, ear pain, ear ringing, eye pain, eye redness, hearing loss, mouth pain, mouth swelling, nasal discharge, nose bleeding, nose congestion, nose pain, photophobia, tearing, throat pain, throat swelling, voice changes, others Respiratory: denies: cough, hemoptysis, orthopnea, SOB at rest, shortness of breath, SOB with excertion, stridor, wheezing, others Cardiovascular: denies: chest pain, dizzy spells, diaphoresis, Dyspnea on exertion, edema, irregular heart beat, left arm pain, lightheadedness, palpitations, PND, syncope, others Gastrointestinal: denies: abdomen distended, abdominal pain, blood streaked bowels, constipated, diarrhea, dysphagia, difficulty swallowing, hematemesis, melena, nausea, poor appetite, poor fluid intake, rectal bleeding, rectal pain, vomiting, others Genitourinary: denies: burning, dysuria, flank pain, frequency, hematuria, incontinence, penile discharge, penile sore, pain, testicle pain, testicle swelling, urgency, others Neurological: denies: dizziness, fainting, headache, left sided numbness, left sided weakness, numbness, paresthesia, pre-existing deficit, right sided numbness, right sided weakness, seizure, speech problems, tingling, tremors, weakness, others Musculoskeletal: reports: muscle pain (LEFT MIDDLE RIBS ), others (LEFT RIB PAIN); denies: back pain, gout, joint pain, joint swelling, muscle stiffness, neck pain Integumetry: denies: bruises, change in color, change in hair/nails, dryness, laceration, lesions, lumps, rash, wounds, others Allergic/Immunocompromised: denies: Difficulty Healing, Frequent Infections, Hives, Itching, others Hematologic/Lymphatic: denies: anemia, blood clots, easy bleeding, easy bruising, swollen glands, others Endocrine: denies: excessive hunger, excessive sweating, excessive thirst, excessive urination, flushing, intolerance to cold, intolerance to heat, unexplained weight gain, unexplained weight loss, others Psychiatric: denies: anxiety, bipolar disorder, depression, hopeless, panic disorder, schizophrenia, sleepless, suicidal, others All Other Systems: Reviewed and Negative Physical Exam General Appearance: No Apparent Distress, Normal HEENT: Normal ENT Inspection, PERRL/EOMI, Pharynx Normal Neck: Full Range of Motion, Non-Tender, Normal, Normal Inspection Respiratory: Chest Non-Tender, Lungs Clear, No Accessory Muscle Use, No Respiratory Distress, Normal Breath Sounds Cardiovascular: No Edema, No JVD, No Murmur, No Gallop, Normal Peripheral Pulses, Regular Rate/Rhythm Breast Exam: Deferred Gastrointestinal: No Organomegaly, Non Tender, No Pulsatile Mass, Normal Bowel Sounds, Soft Genitalia: Deferred Pelvic: Deferred Rectal: Deferred Extremities: No calf tenderness, Normal capillary refill, Normal inspection, Normal range of motion, Non-tender, No pedal edema Musculoskeletal : Location: Left Extremity Location: Other (LEFT MIDDLE RIBS ) Apperance: Tenderness (AND MUSCLE SPASM ON LEFT MIDDLE RIBS, NO BONY TENDERNESS, SWELLING AND DEFORMITY. ) Neurologic: Alert, scrap drop operator II-XII nml as Tested, No Motor Deficits, Normal Affect, Normal Mood, No Sensory Deficits Cerebellar Function: Normal Reflexes: Normal Skin: Dry, Normal Color, Warm Peripheral Pulses: 2+ carotid (R), 2+ carotid (L) Lymphatic: No Adenopathy Was a procedure done? Was a procedure done?: No Differential Dx Considerations may include: FX AND MUSCLE STRAIN OF LEFT RIBS, PNEUMOTHORAX, PNEUMONIA X-Ray, Labs, Meds, VS Vital Signs Date Time Temp Pulse Resp B/P (MAP) Pulse Ox O2 Delivery O2 Flow Rate FiO2 09/10/24 08:33 97.9 79 19 119/69 (86) 99 97.9 09/10/24 08:33 79 19 99 Room Air 09/10/24 08:18 97.8 76 16 115/66 (82) 99 Current Medications Medications (Trade) Dose Ordered Sig/Giovanny Route Start Time Stop Time Status Last Admin Acetaminophen/ Hydrocodone Bitart ([place] 5/325MG Tab) 1 tab ONCE ONCE PO 09/10/24 08:45 09/10/24 08:46 DC 09/10/24 08:43 X-Ray, Labs, Meds, VS Comment NORCO 5/325 PO CHEST X-RAY: NO ACUTE FINDING, READ BY ME, PENDING RADIOLOGIST READING. Time of 1ST Reevaluation: 09:04 Reevaluation 1ST: Improved Patient Education/Counseling: Diagnosis, Treatment, Need For Follow Up Family Education/Counseling: Diagnosis, Treatment, No Family Present Medical Screening: No EMC Exist At This Time Departure 1 Departure Time of Disposition: 09:05 Impression: Primary Impression: Intercostal muscle strain Qualified Codes: S29.011A - Strain of muscle and tendon of front wall of thorax, initial encounter Disposition: HOME / SELF CARE / HOMELESS Condition: Stable Additional Instructions: FOLLOW-UP WITH PCP IN 1 TO 2 DAYS. TAKE MEDICATIONS PRESCRIBED. RETURN TO ED FOR ANY NEW OR WORSENING SYMPTOMS. e-Prescriptions Baclofen (Baclofen) 10 Mg Tab 10 MG PO BID, #20 TAB Prov: DANISH NAVARRO 09/10/24 Ibuprofen (Ibuprofen) 800 Mg Tab 1 TAB PO TID, #24 TAB Prov: DANISH NAVARRO 09/10/24 Discharged With: Self Critical Care Note Critical Care Time?: No Stability Stability form required: No Heart Score Heart Score: Heart Score Response (Comments) Value History N/A 0 EKG N/A 0 Age N/A 0 Risk Factors N/A 0 Troponin N/A 0 Total 0 I personally scribed for DANISH NAVARRO ([email or web address]) on 09/10/24 at 08:40. Electronically submitted by Josh Braga ([email or web address]). I personally scribed for DANISH NAVARRO ([email or web address]) on 09/10/24 at 08:59. Electronically submitted by Johs Braga ([email or web address]). DANISH NAVARRO Sep 10, 2024 08:40
[2024-09-10] MEDS: HYDROcodone-ACET 5/325MG TAB PO ONE (08:43)
[2024-09-10] MEDS ORDERED: BACL10TA PO (09:03)
[2024-09-10] MEDS ORDERED: IBUP-1456 PO (09:03)
--- NOTE | 2024-09-10 09:07 | DVH ---
CHEST RADIOGRAPH Indication: LEDR MIDDLE RIBS PAIN, NO INJURY Technique: Frontal and lateral view of the chest was obtained Comparison: 08/26/2023 FINDINGS: Lines and Tubes: None Lungs: Clear Pleura: No effusion. No pneumothorax. Cardiomediastinal contours: Unremarkable Bones: Unremarkable IMPRESSION: No evidence of acute disease.
== END 2024-09-10 09:18 | disposition home or self-care (01) ==
LOC: ER 08:11
DX: S29.011A Strain of muscle and tendon of front wall of thorax, initial encounter (principal); F12.10 Cannabis abuse, uncomplicated; Z79.1 Long term (current) use of non-steroidal anti-inflammatories (NSAID); Z79.899 Other long term (current) drug therapy; X58.XXXA Exposure to other specified factors, initial encounter; Y93.89 Activity, other specified; Y92.89 Other specified places as the place of occurrence of the external cause; Y99.8 Other external cause status
CPT/HCPCS: 71046

== ENCOUNTER 2024-09-15 10:18 | Emergency (ER) | payer OTHER ==
[~2024-09-15] VITALS: Ht 177.8 cm; Wt 72.6 kg
[~2024-09-15 10:18] MED LIST changes: +BACL10TA PO; +IBUP-1456 PO
[2024-09-15 11:30] VITALS: BP 120/62; PULSE 75; RESP 16; TEMP 98.9; O2SAT 98
[2024-09-15] MEDS ORDERED: IBUP-1456 PO (11:32)
[2024-09-15] MEDS ORDERED: METH-1181 PO (11:32)
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
[2024-09-15] MEDS: HYDROcodone-ACET 10/325MG TAB PO ONE (11:39)
== END 2024-09-15 11:56 | disposition home or self-care (01) ==
LOC: ER 10:18
DX: M79.10 Myalgia, unspecified site (principal); Z79.899 Other long term (current) drug therapy; V89.0XXA Person injured in unspecified motor-vehicle accident, nontraffic, initial encounter; Y93.89 Activity, other specified; Y92.89 Other specified places as the place of occurrence of the external cause; Y99.8 Other external cause status

== ENCOUNTER 2024-09-24 09:02 | Emergency (ER) | payer OTHER ==
[~2024-09-24] VITALS: Ht 157.5 cm; Wt 75.2 kg
[~2024-09-24 09:02] MED LIST changes: +METH-1181 PO
[2024-09-24 09:44] VITALS: BP 110/65; PULSE 70; RESP 16; TEMP 98.9; O2SAT 97
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
[2024-09-24] MEDS: HYDROcodone-ACET 5/325MG TAB PO ONE (10:07)
--- NOTE | 2024-09-24 10:35 | DVH ---
CLINICAL INDICATION: POSSIBLE trauma TECHNIQUE: 3 radiographic views of the right shoulder were obtained. Comparison: None FINDINGS/IMPRESSION: There is no evidence of acute fracture or dislocation. The visualized joint space is well maintained. The alignment is anatomical. There is no radiopaque foreign body.
== END 2024-09-24 10:18 | disposition home or self-care (01) ==
LOC: ER 09:02
DX: S46.811A Strain of other muscles, fascia and tendons at shoulder and upper arm level, right arm, initial encounter (principal); F10.90 Alcohol use, unspecified, uncomplicated; F15.90 Other stimulant use, unspecified, uncomplicated; Z79.899 Other long term (current) drug therapy; Z79.1 Long term (current) use of non-steroidal anti-inflammatories (NSAID); V49.9XXA Car occupant (driver) (passenger) injured in unspecified traffic accident, initial encounter; Y93.I9 Activity, other involving external motion; Y92.89 Other specified places as the place of occurrence of the external cause; Y99.8 Other external cause status; Y90.0 Blood alcohol level of less than 20 mg/100 ml
CPT/HCPCS: 73030

== ENCOUNTER 2024-09-29 12:11 | Emergency (ER) | payer OTHER ==
[~2024-09-29] VITALS: Ht 177.8 cm; Wt 72.0 kg
[2024-09-29] MEDS ORDERED: IBUP-1454 PO (13:24)
[2024-09-29] MEDS ORDERED: BENZ100C97 PO (13:24)
[2024-09-29] MEDS ORDERED: AZIT-43 PO (13:24)
[2024-09-29] MEDS ORDERED: ACET500T58 PO (13:24)
[2024-09-29] MEDS ORDERED: PROM1SOL4 PO (13:24)
--- NOTE | 2024-09-29 13:24 | ED.PDOC ---
History of Present Illness HPI Comments This is a 19-year-old male with no MHx that presents for URI symptoms for the last three days. Complains of a frontal lobe headache, sore throat, nonproductive cough and one vomiting episode and has not taken medications for these symptoms. Denies fevers chills night sweats unintentional weight loss Denies persistent chest pain, shortness of breath, leg swelling Denies history of asthma nor any breathing conditions Denies history of pneumonia Denies recent international travel Chief Complaint: Flu like Time Seen by MD: 12:43 Reviewed Notes: Nurses Notes, Medications, Allergies Information Source: Patient Past Medical History PAST MEDICAL HISTORY: Denies Surgical History: Denies all surgeries Family History Family History: Reviewed,noncontributory to illness Social History Smoker: Non-Smoker Alcohol: Heavy, Sober Drugs: Marijuana, Other Lives In: Home All Other Systems: Reviewed and Negative (Per HPI) Physical Exam General Appearance: No Apparent Distress, Normal HEENT: Normal ENT Inspection, Pharynx Normal, TMs Normal Neck: Full Range of Motion, Non-Tender, Normal, Normal Inspection Respiratory: Chest Non-Tender, Lungs Clear, No Accessory Muscle Use, No Respiratory Distress, Normal Breath Sounds Cardiovascular: No Edema, No JVD, No Murmur, No Gallop, Normal Peripheral Pulses, Regular Rate/Rhythm Breast Exam: Deferred Gastrointestinal: No Organomegaly, Non Tender, No Pulsatile Mass, Normal Bowel Sounds, Soft Genitalia: Deferred Pelvic: Deferred Rectal: Deferred Extremities: No calf tenderness, Normal capillary refill, Normal inspection, Normal range of motion, Non-tender, No pedal edema Musculoskeletal : Apperance: Normal Neurologic: Alert, warehouse order selector II-XII nml as Tested, No Motor Deficits, Normal Affect, Normal Mood, No Sensory Deficits Cerebellar Function: Normal Reflexes: Normal Skin: Dry, Normal Color, Warm Lymphatic: No Adenopathy Was a procedure done? Was a procedure done?: No Fever Differential Dx Differential Diagnosis: Viral Syndrome X-Ray, Labs, Meds, VS Vital Signs Date Time Temp Pulse Resp B/P (MAP) Pulse Ox O2 Delivery O2 Flow Rate FiO2 09/29/24 13:25 100 18 98 Room Air 09/29/24 13:25 100.1 100 18 112/64 (80) 98 100.1 09/29/24 12:23 100.1 104 19 114/60 (78) 97 X-Ray, Labs, Meds, VS Comment History and physical consistent of URI Take medication as prescribed Based on show decision-making patient agreed to empiric treatment Discussed that cough can linger up to 6 weeks after viral URI ED precautions if cough does not alleviate or if cough worsens Supportive care and return precautions discussed Counseled viral infection and explained that antibiotics would not be helpful in resolving the illness sooner. Recommended vitamin C, rest, handwashing, and symptomatic care. Expect 2-week course with possibly of cough lingering up to 6 weeks. Nonpharmacological remedies for fluids has been recommended as well On reevaluation, patient had symptomatic improvement. Patient is stable for discharge at this time. External notes reviewed. Test results and diagnostic imaging interpreted. All diagnostic findings, discharge care, education and instructions provided Follow-up with PCP in 2 to 3 days Patient verbalized understanding and agreed to treatment plan Vital signs stable, afebrile, no acute distress noted Patient ambulatory with strong steady gait Advised to return precautions for any new or worsening symptoms, return to ER immediately for re-evaluation Patient is aware that the purpose of this visit was for an acute medical emergency requiring emergent stabilization. Chronic conditions, including malignancies have not been ruled out. Patient is instructed to follow up with PCP as directed and discharge instructions for continued care and workup. If unable to arrange follow-up, patient is to return to the emergency department for reassessment. Patient (parent or legal guardian if applicable) was given verbal and written discharge instructions and acknowledges understanding. Time of 1ST Reevaluation: 13:20 Reevaluation 1ST: Improved Patient Education/Counseling: Diagnosis, Treatment Family Education/Counseling: Diagnosis, Treatment Departure 1 Departure Time of Disposition: 13:22 Impression: Primary Impression: Viral syndrome Disposition: HOME / SELF CARE / HOMELESS Condition: Stable e-Prescriptions Acetaminophen (Acetaminophen) 500 Mg Tab 500 MG PO Q6HP PRN for 10 Days, #40 TAB 0 Refills Prov: BYRON LOW INKJET OPERATOR 09/29/24 Ibuprofen (Ibuprofen) 600 Mg Tab 1 TAB PO TID for 10 Days, #30 TAB 0 Refills Prov: BYRON LOW NP 09/29/24 Azithromycin (Azithromycin) 250 Mg Tab 250 MG PO DAILY MDD 500 for 5 Days, #6 TAB 0 Refills 2 TABLETS ORALLY ON DAY ONE, THEN 1 TABLET ORALLY DAILY FOR 4 DAYS Prov: BYRON LOW NP 09/29/24 Promethazine-Dm (Promethazine Dm 6.25-15 mg/5Ml) 1 Idalia Idalia 5 ML PO TIDP PRN for 10 Days, #150 ML 0 Refills Prov: BYRON LOW NP 09/29/24 Benzonatate (Benzonatate) 100 Mg Cap 1 CAP PO TID for 10 Days, #30 CAP 0 Refills Prov: BYORN LOW NP 09/29/24 Critical Care Note Critical Care Time?: No Stability Stability form required: No Heart Score Heart Score: Heart Score Response (Comments) Value History N/A 0 EKG N/A 0 Age N/A 0 Risk Factors N/A 0 Troponin N/A 0 Total 0 BYRON LOW NP Sep 29, 2024 13:24
[2024-09-29 13:25] VITALS: BP 112/64; PULSE 100; RESP 18; TEMP 100.1; O2SAT 98
== END 2024-09-29 13:47 | disposition home or self-care (01) ==
LOC: ER 12:11
DX: B34.9 Viral infection, unspecified (principal)

== ENCOUNTER 2024-10-23 07:36 | Emergency (ER) | payer MEDICAID, OTHER ==
[~2024-10-23] VITALS: Ht 157.5 cm; Wt 75.0 kg
[~2024-10-23 07:36] MED LIST changes: +ACET500T58 PO; +AZIT-43 PO; +BENZ100C97 PO; +IBUP-1454 PO; +PROM1SOL4 PO
[2024-10-23 08:10] VITALS: BP 146/56; PULSE 64; RESP 16; TEMP 97.6; O2SAT 98
[2024-10-23] MEDS ORDERED: AZIT500T66 PO (08:33)
[2024-10-23] MEDS ORDERED: PROM1SOL4 PO (08:33)
--- NOTE | 2024-10-23 08:42 | ED.PDOC ---
Eye-HPI HPI Comments A 19 YEAR OLD MALE PRESENTS TO THE ED WITH CHIEF COMPLAINT OF SORE THROAT. PATIENT REPORTS THAT HE HAS BEEN EXPERIENCING A SORE THROAT WITH ASSOCIATED COUGH FOR THE PAST 3 DAYS. PATIENT DENIES ANY SOB, DIZZINESS, FEVER, CHILLS, CHEST PAIN, OR HEADACHE. Chief Complaint: Sore Throat Time Seen by MD: 08:33 Primary Care Provider: NONE Reviewed Notes: Nurses Notes, Medications, Allergies Allergies: Coded Allergies: NO KNOWN ALLERGIES (Unverified , 08/10/22) Home Meds Active Scripts Promethazine-Dm (Promethazine Dm 6.25-15 mg/5Ml) 1 Idalia Idalia, 5 ML PO TID, #150 ML Prov:DANISH NAVARRO PA 10/23/24 Azithromycin (Azithromycin) 500 Mg Tab, 1 TAB PO DAILY, #5 TAB Prov:DANISH NAVARRO 10/23/24 Acetaminophen (Acetaminophen) 500 Mg Tab, 500 MG PO Q6HP PRN for 10 Days, #40 TAB 0 Refills Prov:BYRON LOW NP 09/29/24 Ibuprofen (Ibuprofen) 600 Mg Tab, 1 TAB PO TID for 10 Days, #30 TAB 0 Refills Prov:BYRON LOW NP 09/29/24 Azithromycin (Azithromycin) 250 Mg Tab, 250 MG PO DAILY MDD 500 for 5 Days, #6 TAB 0 Refills 2 TABLETS ORALLY ON DAY ONE, THEN 1 TABLET ORALLY DAILY FOR 4 DAYS Prov:BYRON LOW NP 09/29/24 Promethazine-Dm (Promethazine Dm 6.25-15 mg/5Ml) 1 Idalia Idalia, 5 ML PO TIDP PRN for 10 Days, #150 ML 0 Refills Prov:BYRON LOW NP 09/29/24 Benzonatate (Benzonatate) 100 Mg Cap, 1 CAP PO TID for 10 Days, #30 CAP 0 Refills Prov:BYRON LOW NP 09/29/24 Ibuprofen (Ibuprofen) 800 Mg Tab, 1 TAB PO TID for 10 Days, #30 TAB 0 Refills Prov:BYRON LOW NP 09/15/24 Methocarbamol (Methocarbamol) 500 Mg Tab, 500 MG PO TIDPRN PRN for 14 Days, #42 TAB 0 Refills Prov:BYRON LOW NP 09/15/24 Baclofen (Baclofen) 10 Mg Tab, 10 MG PO BID, #20 TAB Prov:DANISH NAVARRO 09/10/24 Ibuprofen (Ibuprofen) 800 Mg Tab, 1 TAB PO TID, #24 TAB Prov:DANISH NAVARRO 09/10/24 Pantoprazole Sodium Sesquihydr (Protonix) 40 Mg Tab, 40 MG PO DAILY, #20 TAB Prov:DANISH NAVARRO 09/04/24 Ondansetron Odt 4MG Tab (ZOFRAN PO) 4 Mg Tb, 4 MG PO Q6HR for 5 Days, #12 TAB ODT TAB-DISSOLVE IN MOUTH, THEN SWALLOW Prov:GRAYSON IQBAL MD 08/28/24 Hyoscyamine Sulfate (Levsin/Sl) 0.125 Mg Sub, 1-2 TAB SL Q4HPRN, #20 TAB 1 Refill Prov:GRAYSON IQBAL MD 08/28/24 Emollient (Eucerin Advanced Repair) 1 Cre Cre, 1 CRE EX BID for 90 Days, #1 BOT 0 Refills Prov:BYRON LOW NP 09/04/23 Hydrocortone (Hydrocortisone 2.5%) 1 Applic Ap, 1 APPLIC TOP BID for 5 Days, #25 GRAMS 0 Refills Prov:BYRON LOW NP 09/04/23 Benzocaine-Menthol (Mouth-Thro (Cepacol Sore Throat) 1 Elizabeth Elizabeth, 1 ELIZABETH MT Q4HR, #24 ELIZABETH as needed for sorethroat Prov:JANNIE HINOJOSA OPENER [employer] 08/26/23 Prednisone (Prednisone) 20 Mg Tab, 1 TAB PO DAILY for 5 Days, #5 TAB start tomorrow with food Prov:JANNIE HINOJOSA OPENER [employer] 08/26/23 Clindamycin Hcl (Clindamycin Hcl) 300 Mg Cap, 1 CAP PO TID for 10 Days, #30 CAP Prov:JANNIE HINOJOSA OPENER [employer] 08/26/23 Albuterol Sulfate (VENTOLIN MDI) 90 Mcg Ih, 1 PUFF IN Q4H, #1 INH as needed for cough congestion SOb and wheezing Prov:JANNIE HINOJOSA OPENER [employer] 06/26/23 Prednisone (Prednisone) 20 Mg Tab, 1 TAB PO DAILY, #5 MG with food Prov:JANNIE HINOJOSA OPENER [employer] 06/26/23 Azithromycin (Zithromax Z-[place]) 250 Mg Tab, 1 TAB PO DAILY for 5 Days, #6 TAB 2 tabs today then 1 tab start tomorrow for 4 days Prov:JANNIE HINOJOSA Marleny OPENER [employer] 06/26/23 Amoxicillin Trihydrate (Amoxicillin) 500 Mg Tab, 500 MG PO 3 TIMES DAILY for 7 Days, #21 TAB Prov:HEATHER JENKINS MD 08/10/22 Sumatriptan Succinate (Sumatriptan Succinate) 100 Mg Tab, 25 MG PO 3 TIMES DAILY for 7 Days, #21 TAB Prov:HEATHER JENKINS MD 08/10/22 Information Source: Patient Mode of Arrival: Ambulatory Timing: Days Duration: Since onset Prehospital treatment: None Lids: Normal Conjunctiva: Normal Cornea: Normal Pupils: Normal EOM: Normal Fundus: Normal Anterior chamber: Normal Mouth Location: Pharynx Mouth: Normal ENT Ear Exam: Normal, Normal, Normal Nose: Normal Sinuses: Normal Oropharynx: Red Onset: Spontaneous Throat Exposed to: None History of: None Associated signs and symptoms: Sore Throat Past Medical History PAST MEDICAL HISTORY: Denies Surgical History: Denies all surgeries Family History Family History: Reviewed,noncontributory to illness Social History Smoker: Non-Smoker Alcohol: Heavy, Sober Drugs: Marijuana, Other Lives In: Home Constitutional: denies: chills, diaphoresis, fatigue, fever, malaise, sweats, weakness, others EENTM: reports: throat pain, throat swelling; denies: blurred vision, double vision, ear bleeding, ear discharge, ear drainage, ear pain, ear ringing, eye pain, eye redness, hearing loss, mouth pain, mouth swelling, nasal discharge, nose bleeding, nose congestion, nose pain, photophobia, tearing, voice changes, others Respiratory: reports: cough; denies: hemoptysis, orthopnea, SOB at rest, shortness of breath, SOB with excertion, stridor, wheezing, others Cardiovascular: denies: chest pain, dizzy spells, diaphoresis, Dyspnea on exertion, edema, irregular heart beat, left arm pain, lightheadedness, pa lpitations, PND, syncope, others Gastrointestinal: denies: abdomen distended, abdominal pain, blood streaked bowels, constipated, diarrhea, dysphagia, difficulty swallowing, hematemesis, melena, nausea, poor appetite, poor fluid intake, rectal bleeding, rectal pain, vomiting, others Genitourinary: denies: burning, dysuria, flank pain, frequency, hematuria, incontinence, penile discharge, penile sore, pain, testicle pain, testicle swelling, urgency, others Neurological: denies: dizziness, fainting, headache, left sided numbness, left sided weakness, numbness, paresthesia, pre-existing deficit, right sided numbness, right sided weakness, seizure, speech problems, tingling, tremors, weakness, others Musculoskeletal: denies: back pain, gout, joint pain, joint swelling, muscle pain, muscle stiffness, neck pain, others Integumetry: denies: bruises, change in color, change in hair/nails, dryness, laceration, lesions, lumps, rash, wounds, others Allergic/Immunocompromised: denies: Difficulty Healing, Frequent Infections, Hives, Itching, others Hematologic/Lymphatic: denies: anemia, blood clots, easy bleeding, easy br uising, swollen glands, others Endocrine: denies: excessive hunger, excessive sweating, excessive thirst, excessive urination, flushing, intolerance to cold, intolerance to heat, unexplained weight gain, unexplained weight loss, others Psychiatric: denies: anxiety, bipolar disorder, depression, hopeless, panic disorder, schizophrenia, sleepless, suicidal, others All Other Systems: Reviewed and Negative Physical Exam General Appearance: No Apparent Distress, Normal HEENT: Normal ENT Inspection, PERRL/EOMI, Pharyngeal Erythema, TMs Normal Neck: Full Range of Motion, Non-Tender, Normal, Normal Inspection Respiratory: Chest Non-Tender, Lungs Clear, No Accessory Muscle Use, No Respiratory Distress, Normal Breath Sounds Cardiovascular: No Edema, No JVD, No Murmur, No Gallop, Normal Peripheral Pulses, Regular Rate/Rhythm Breast Exam: Deferred Gastrointestinal: No Organomegaly, Non Tender, No Pulsatile Mass, Normal Bowel Sounds, Soft Genitalia: Deferred Pelvic: Deferred Rectal: Deferred Extremities: No calf tenderness, Normal capillary refill, Normal inspection, Normal range of motion, Non-tender, No pedal edema Musculoskeletal : Apperance: Normal Neurologic: Alert, sustainability project coordinator II-XII nml as Tested, No Motor Deficits, Normal Affect, Normal Mood, No Sensory Deficits Cerebellar Function: Normal Reflexes: Normal Skin: Dry, Normal Color, Warm Lymphatic: No Adenopathy Was a procedure done? Was a procedure done?: No EENT DIFF Eye: Other Ear: Otitis Media, Pharyngitis X-Ray, Labs, Meds, VS Vital Signs Date Time Temp Pulse Resp B/P (MAP) Pulse Ox O2 Delivery O2 Flow Rate FiO2 10/23/24 08:10 97.6 64 16 146/56 (86) 98 97.6 10/23/24 07:51 99.0 71 18 107/64 (78) 99 X-Ray, Labs, Meds, VS Comment - I reviewed the following notes from patient's past medical encounters: 09/29/24 FOR VIRAL SYNDROME - The following tests were ordered, and results were reviewed by me: VENESSA - Additional information was gathered from interviewing the following independent Historian: VENESSA - I reviewed and agreed with the following test results read by other provider: VENESSA - I discussed treatments and results with medical personnel. Time of 1ST Reevaluation: 08:55 Reevaluation 1ST: Improved Patient Education/Counseling: Diagnosis, Treatment, Need For Follow Up Family Education/Counseling: Diagnosis, Treatment, No Family Present Medical Screening: No EMC Exist At This Time Departure 1 Departure Time of Disposition: 08:55 Impression: Primary Impression: Acute tonsillitis Qualified Codes: J03.90 - Acute tonsillitis, unspecified Disposition: HOME / SELF CARE / HOMELESS Condition: Stable Additional Instructions: F/U PCP IN 2 DAYS RECHECK. IF CONDITION BECOME WORSE, RETURN TO ED [facility]. e-Prescriptions Promethazine-Dm (Promethazine Dm 6.25-15 mg/5Ml) 1 Idalia Idalia 5 ML PO TID, #150 ML Prov: DANISH NAVARRO 10/23/24 Azithromycin (Azithromycin) 500 Mg Tab 1 TAB PO DAILY, #5 TAB Prov: DANISH NAVARRO 10/23/24 Discharged With: Self, Relative Critical Care Note Critical Care Time?: No Stability Stability form required: No Heart Score Heart Score: Heart Score Response (Comments) Value History N/A 0 EKG N/A 0 Age N/A 0 Risk Factors N/A 0 Troponin N/A 0 Total 0 I personally scribed for DANISH NAVARRO ([email or web address]) on 10/23/24 at 08:42. Electronically submitted by Josh Braga ([email or web address]). DANISH NAVARRO Oct 23, 2024 08:42
== END 2024-10-23 09:00 | disposition home or self-care (01) ==
LOC: ER 07:36
DX: J03.90 Acute tonsillitis, unspecified (principal); F10.90 Alcohol use, unspecified, uncomplicated; F15.90 Other stimulant use, unspecified, uncomplicated; Z79.1 Long term (current) use of non-steroidal anti-inflammatories (NSAID); Z79.899 Other long term (current) drug therapy; Y90.0 Blood alcohol level of less than 20 mg/100 ml

== ENCOUNTER 2024-10-25 09:39 | Emergency (ER) | payer OTHER ==
[~2024-10-25] VITALS: Ht 177.8 cm; Wt 73.3 kg
[~2024-10-25 09:39] MED LIST changes: +AZIT500T66 PO
--- NOTE | 2024-10-25 10:02 | ED.PDOC ---
History of Present Illness HPI Comments 19 year old male presents to the ED with a chief complaint of epigastric discomfort onset today. Patient states he began experiencing a burning sensation, epigastric region and states he smoked marihuana 20 minutes prior to ED arrival. Denies any PMHx. Denies chest pain, shortness of breath, nausea, vomiting, diarrhea, dizziness, headache. No other symptoms or modifying factors present at this time. Chief Complaint: Abdominal Pain Time Seen by MD: 09:50 Primary Care Provider: NONE Reviewed Notes: Medications, Allergies Allergies: Coded Allergies: NO KNOWN ALLERGIES (Unverified , 08/10/22) Home Meds Active Scripts Promethazine-Dm (Promethazine Dm 6.25-15 mg/5Ml) 1 Idalia Idalia, 5 ML PO TID, #150 ML Prov:DANISH NAVARRO PA 10/23/24 Azithromycin (Azithromycin) 500 Mg Tab, 1 TAB PO DAILY, #5 TAB Prov:DANISH NAVARRO PA 10/23/24 Acetaminophen (Acetaminophen) 500 Mg Tab, 500 MG PO Q6HP PRN for 10 Days, #40 TAB 0 Refills Prov:BYRON LOW SOCIAL SERVICE TECHNICIAN 09/29/24 Ibuprofen (Ibuprofen) 600 Mg Tab, 1 TAB PO TID for 10 Days, #30 TAB 0 Refills Prov:BYRON LOW NP 09/29/24 Azithromycin (Azithromycin) 250 Mg Tab, 250 MG PO DAILY MDD 500 for 5 Days, #6 TAB 0 Refills 2 TABLETS ORALLY ON DAY ONE, THEN 1 TABLET ORALLY DAILY FOR 4 DAYS Prov:BYRON LOW NP 09/29/24 Promethazine-Dm (Promethazine Dm 6.25-15 mg/5Ml) 1 Idalia Idalia, 5 ML PO TIDP PRN for 10 Days, #150 ML 0 Refills Prov:BYRON LOW NP 09/29/24 Benzonatate (Benzonatate) 100 Mg Cap, 1 CAP PO TID for 10 Days, #30 CAP 0 Refills Prov:BYRON LOW NP 09/29/24 Ibuprofen (Ibuprofen) 800 Mg Tab, 1 TAB PO TID for 10 Days, #30 TAB 0 Refills Prov:BYRON LOW NP 09/15/24 Methocarbamol (Methocarbamol) 500 Mg Tab, 500 MG PO TIDPRN PRN for 14 Days, #42 TAB 0 Refills Prov:BYRON LOW JW 09/15/24 Baclofen (Baclofen) 10 Mg Tab, 10 MG PO BID, #20 TAB Prov:DANISH NAVARRO 09/10/24 Ibuprofen (Ibuprofen) 800 Mg Tab, 1 TAB PO TID, #24 TAB Prov:DANISH NAVARRO 09/10/24 Pantoprazole Sodium Sesquihydr (Protonix) 40 Mg Tab, 40 MG PO DAILY, #20 TAB Prov:DANISH NAVARRO 09/04/24 Ondansetron Odt 4MG Tab (ZOFRAN PO) 4 Mg Tb, 4 MG PO Q6HR for 5 Days, #12 TAB ODT TAB-DISSOLVE IN MOUTH, THEN SWALLOW Prov:GRAYSON IQBAL MD 08/28/24 Hyoscyamine Sulfate (Levsin/Sl) 0.125 Mg Sub, 1-2 TAB SL Q4HPRN, #20 TAB 1 Refill Prov:GRAYSON IQBAL MD 08/28/24 Emollient (Eucerin Advanced Repair) 1 Cre Cre, 1 CRE EX BID for 90 Days, #1 BOT 0 Refills Prov:BYRON LOW JW 09/04/23 Hydrocortone (Hydrocortisone 2.5%) 1 Applic Ap, 1 APPLIC TOP BID for 5 Days, #25 GRAMS 0 Refills Prov:BYRON LOW SOCIAL SERVICE TECHNICIAN 09/04/23 Benzocaine-Menthol (Mouth-Thro (Cepacol Sore Throat) 1 Tri Tri, 1 TRI MT Q4HR, #24 TRI as needed for sorethroat Prov:JANNIE HINOJOSA SOCIAL SERVICE TECHNICIAN 08/26/23 Prednisone (Prednisone) 20 Mg Tab, 1 TAB PO DAILY for 5 Days, #5 TAB start tomorrow with food Prov:JANNIE HINOJOSA SOCIAL SERVICE TECHNICIAN 08/26/23 Clindamycin Hcl (Clindamycin Hcl) 300 Mg Cap, 1 CAP PO TID for 10 Days, #30 CAP Prov:JANNIE HINOJOSA SOCIAL SERVICE TECHNICIAN 08/26/23 Albuterol Sulfate (VENTOLIN MDI) 90 Mcg Ih, 1 PUFF IN Q4H, #1 INH as needed for cough congestion SOb and wheezing Prov:JANNIE HINOJOSA SOCIAL SERVICE TECHNICIAN 06/26/23 Prednisone (Prednisone) 20 Mg Tab, 1 TAB PO DAILY, #5 MG with food Prov:JANNIE HINOJOSA Q SOCIAL SERVICE TECHNICIAN 06/26/23 Azithromycin (Zithromax Z-[place]) 250 Mg Tab, 1 TAB PO DAILY for 5 Days, #6 TAB 2 tabs today then 1 tab start tomorrow for 4 days Prov:JANNIE HINOJOSA Q SOCIAL SERVICE TECHNICIAN 06/26/23 Amoxicillin Trihydrate (Amoxicillin) 500 Mg Tab, 500 MG PO 3 TIMES DAILY for 7 Days, #21 TAB Prov:HEATHER JENKINS MD 08/10/22 Sumatriptan Succinate (Sumatriptan Succinate) 100 Mg Tab, 25 MG PO 3 TIMES DAILY for 7 Days, #21 TAB Prov:HEATHER JENKINS MD 08/10/22 Information Source: Patient Mode of Arrival: Ambulatory Severity: Moderate Timing: Hours Duration: Since onset Prehospital treatment: None Past Medical History PAST MEDICAL HISTORY: Denies Surgical History: Denies all surgeries Family History Family History: Reviewed,noncontributory to illness Social History Smoker: Non-Smoker Alcohol: Heavy, Sober Drugs: Marijuana, Other Lives In: Home Constitutional: denies: chills, diaphoresis, fatigue, fever, malaise, sweats, weakness, others EENTM: denies: blurred vision, double vision, ear bleeding, ear discharge, ear drainage, ear pain, ear ringing, eye pain, eye redness, hearing loss, mouth pain, mouth swelling, nasal discharge, nose bleeding, nose congestion, nose pain, photophobia, tearing, throat pain, throat swelling, voice changes, others Respiratory: denies: cough, hemoptysis, orthopnea, SOB at rest, shortness of breath, SOB with excertion, stridor, wheezing, others Cardiovascular: denies: chest pain, dizzy spells, diaphoresis, Dyspnea on exertion, edema, irregular heart beat, left arm pain, lightheadedness, palpitations, PND, syncope, others Gastrointestinal: reports: others (burning sensation); denies: abdomen distended, abdominal pain, blood streaked bowels, constipated, diarrhea, dysphagia, difficulty swallowing, hematemesis, melena, nausea, poor appetite, poor fluid intake, rectal bleeding, rectal pain, vomiting Genitourinary: denies: burning, dysuria, flank pain, frequency, hematuria, incontinence, penile discharge, penile sore, pain, testicle pain, testicle swelling, urgency, others Neurological: denies: dizziness, fainting, headache, left sided numbness, left sided weakness, numbness, paresthesia, pre-existing deficit, right sided numbness, right sided weakness, seizure, speech problems, tingling, tremors, weakness, others Musculoskeletal: denies: back pain, gout, joint pain, joint swelling, muscle pain, muscle stiffness, neck pain, others Integumetry: denies: bruises, change in color, change in hair/nails, dryness, laceration, lesions, lumps, rash, wounds, others Allergic/Immunocompromised: denies: Difficulty Healing, Frequent Infections, Hives, Itching, others Hematologic/Lymphatic: denies: anemia, blood clots, easy bleeding, easy bruising, swollen glands, others Endocrine: denies: excessive hunger, excessive sweating, excessive thirst, excessive urination, flushing, intolerance to cold, intolerance to heat, unexplained weight gain, unexplained weight loss, others Psychiatric: denies: anxiety, bipolar disorder, depression, hopeless, panic disorder, schizophrenia, sleepless, suicidal, others All Other Systems: Reviewed and Negative Physical Exam General Appearance: Mild Distress HEENT: Normal ENT Inspection, Pharynx Normal, TMs Normal Neck: Full Range of Motion, Non-Tender, Normal, Normal Inspection Respiratory: Chest Non-Tender, Lungs Clear, No Accessory Muscle Use, No Respiratory Distress, Normal Breath Sounds Cardiovascular: No Edema, No JVD, No Murmur, No Gallop, Normal Peripheral Pulses, Regular Rate/Rhythm Breast Exam: Deferred Gastrointestinal: No Organomegaly, Non Tender, No Pulsatile Mass, Normal Bowel Sounds, Soft Genitalia: Deferred Pelvic: Deferred Rectal: Deferred Extremities: No calf tenderness, Normal capillary refill, Normal inspection, Normal range of motion, Non-tender, No pedal edema Musculoskeletal : Apperance: Normal Neurologic: Alert, cpo II-XII nml as Tested, No Motor Deficits, Normal Affect, Normal Mood, No Sensory Deficits Cerebellar Function: Normal Reflexes: Normal Skin: Dry, Normal Color, Warm Peripheral Pulses: 3+ Radial (R), 3+ Radial (L) Lymphatic: No Adenopathy Was a procedure done? Was a procedure done?: No Differential Dx Considerations may include: Gastritis Anxiety X-Ray, Labs, Meds, VS Vital Signs Date Time Temp Pulse Resp B/P (MAP) Pulse Ox O2 Delivery O2 Flow Rate FiO2 10/25/24 10:07 97 14 99 Room Air 10/25/24 10:07 98.3 97 14 120/100 (107) 99 98.3 10/25/24 09:50 98.3 97 14 120/100 (107) 99 Current Medications Medications (Trade) Dose Ordered Sig/Giovanny Route Start Time Stop Time Status Last Admin Belladonna Alkaloids/ Phenobarbital ( Elixir) 10 ml ONCE ONCE PO 10/25/24 10:00 10/25/24 10:01 DC 10/25/24 10:13 Al Hydrox/Mg Hydrox/Simethicone (Maalox Plus) 30 ml ONCE ONCE PO 10/25/24 10:00 10/25/24 10:01 DC 10/25/24 10:13 Lidocaine HCl (Xylocaine 2% Viscous) 15 ml ONCE ONCE PO 10/25/24 10:00 10/25/24 10:01 DC 10/25/24 10:13 Patient alert. Complaining of burning sensation in the stomach. Vitals stable. Answering all questions. Was given GI cocktail. States that he is feeling much better. Heart rate within normal limits. Saturation within normal limits. Counseled patient on effects of marijuana for 15 minutes. Counseled patient on effects of drinking for 15 minutes. No leg swelling. No chest pain. No shortness a breath. No sign of sepsis. Abdomen is soft nontender. Was given prescription of Protonix. Explained to the patient. Was told to follow up with his primary care physician. Was told to come back if there is any problem. Time of 1ST Reevaluation: 10:20 Reevaluation 1ST: Improved Time of 2ND Reevaluation: 11:40 Reevaluation 2ND: Improved Patient Education/Counseling: Diagnosis, Treatment, Prognosis Family Education/Counseling: No Family Present Additional Information I reviewed the following notes from patient's past medical encounters: The following tests were ordered, and results were reviewed by me: DRUG SCREEN I discussed treatment and results with medical personnel and patient Departure 1 Departure Time of Disposition: 11:42 Impression: Primary Impression: Gastritis Qualified Codes: K29.00 - Acute gastritis without bleeding Disposition: 01 HOME / SELF CARE / HOMELESS Condition: Good e-Prescriptions Pantoprazole Sodium Sesquihydr (Protonix) 40 Mg Tab 40 MG PO DAILY for 10 Days, #10 TAB Prov: FINN BENTLEY MD 10/25/24 Discharged With: Self Critical Care Note Critical Care Time?: No Stability Stability form required: No Heart Score Heart Score: Heart Score Response (Comments) Value History N/A 0 EKG N/A 0 Age N/A 0 Risk Factors N/A 0 Troponin N/A 0 Total 0 I personally scribed for FINN BENTLEY MD ([email or web address]) on 10/25/24 at 10:02. Electronically submitted by Shara Maria ([email or web address]). I personally scribed for FINN EBNTLEY MD ([email or web address]) on 10/25/24 at 10:54. Electronically submitted by Shara Maria ([email or web address]). FINN BENTLEY MD Oct 25, 2024 10:02
[2024-10-25 10:07] VITALS: BP 120/100; PULSE 97; RESP 14; TEMP 98.3; O2SAT 99
[2024-10-25] MEDS: DONNATAL 5ml ORAL Elix (BELLADONNA ALK-PHENOBARB) PO ONE (10:13)
[2024-10-25] MEDS: MAALOX PLUS or MAALOX 30 ML PO ONE (10:13)
[2024-10-25] MEDS: LIDOCAINE VISCOUS 2% 15ML UD PO ONE (10:13)
[2024-10-25] MEDS ORDERED: PANT40TA2 PO (11:43)
== END 2024-10-25 11:54 | disposition home or self-care (01) ==
LOC: ER 09:39
DX: K29.70 Gastritis, unspecified, without bleeding (principal); F12.90 Cannabis use, unspecified, uncomplicated; F17.200 Nicotine dependence, unspecified, uncomplicated; Z79.1 Long term (current) use of non-steroidal anti-inflammatories (NSAID); Z79.899 Other long term (current) drug therapy